=== PATIENT | female | born 1990 | race Caucasian/White ===

== ENCOUNTER 2017-04-30 09:03 | Emergency (ER) | payer BC ==
[~2017-04-30] VITALS: Ht 165.1 cm; Wt 75.7 kg
[~2017-04-30 09:03] MED LIST: AZITHROMYCIN250 MG PO; CLARITIN,ALAVAR10 MG PO; LEVAQUIN750 MG PO; MOTRIN400 MG PO; PHENERGAN-CODE120 ML PO; PROMETHAZI6.25 MG/5 PO; PROMETHAZINE12.5 M1 PO; TYLENOL EXTRA500 MG PO; VENTOLIN HFA18 GM IH; ZITHROMAX250 MG PO
[2017-04-30 09:38] LABS: HEMATOCRIT 40.3 % (36.0-46.0); MCH 28.7 PG (29.0-34.0); MCV 84.3 FL (83-99); MEAN PLAT.VOLUME 10.1 uM^3 (9.5-12.4); PLATELET COUNT 305 K/uL (156-360); RBC DIS.WIDTH-CV 11.3 % (11.8-14.6); RBC DIS.WIDTH-SD 34.8 % (39-53); RED BLOOD COUNT 4.78 M/uL (3.80-5.20); WHITE BLOOD COUNT 8.4 K/uL (4.1-10.2)
[2017-04-30 09:51] LABS: CHLORIDE 106 mEq/L (99-109); POTASSIUM 3.8 mEq/L (3.7-5.4); SODIUM 140 mEq/L (136-147)
[2017-04-30 09:54] LABS: GLUCOSE 99 mg/dL (70-99)
[2017-04-30 09:55] LABS: ANION GAP 7 MEQ/L (2-14)
[2017-04-30 09:56] LABS: TOTAL BILIRUBIN 0.6 mg/dL (0.0-1.0)
[2017-04-30 09:57] LABS: ALKALINE PHOSPHATASE 68 IU/L (3-129); GFR ESTIMATE (CALCULATED) > 59 mL/min/
[2017-04-30 09:58] LABS: UREA NITROGEN (BUN) 5 mg/dL (9-23)
[2017-04-30 10:06] LABS: QUANTITATIVE HCG < 4.0 MIU/ML
[2017-04-30 11:20] LABS: ADD MIUA? YES; BILIRUBIN NEGATIVE; BLOOD NEGATIVE; COLOR YELLOW ((YELLOW)); GLUCOSE (STRIP) NEGATIVE; KETONES NEGATIVE; LEUKOCYTES NEGATIVE; NITRITE NEGATIVE; PROTEIN (STRIP) NEGATIVE; UROBILINOGEN 0.2 MG/DL (0.2-1.0)
[2017-04-30 11:24] LABS: BACTERIA RARE /HPF; EPITHELIAL CELLS RARE /HPF; MUCUS TRACE /LPF; UCUL ADDED? NO; WHITE BLOOD CELLS 0-5 /HPF (0-5)
[2017-04-30] MEDS ORDERED: PRILOSEC20 MG PO (12:23)
[2017-04-30] MEDS ORDERED: TYLENOL WITH C1 EACH PO (12:23)
[2017-04-30] MEDS ORDERED: ZOFRAN4 MG PO (12:23)
[2017-04-30 12:56] VITALS: BP 107/62
== END 2017-04-30 13:07 | disposition home or self-care (01) ==
LOC: EME 09:03
DX: R10.12 Left upper quadrant pain (principal)
CPT/HCPCS: 74176; 80053; 81003; 84702; 85027; 99281; 99284

== ENCOUNTER 2017-05-20 18:51 | Emergency (ER) | payer BC ==
[~2017-05-20] VITALS: Ht 165.1 cm; Wt 77.1 kg
[~2017-05-20 18:51] MED LIST changes: +PRILOSEC20 MG PO; +TYLENOL WITH C1 EACH PO; +ZOFRAN4 MG PO
[2017-05-20 19:40] LABS: HEMATOCRIT 40.6 % (36.0-46.0); MCH 29.6 PG (29.0-34.0); MCHC 34.7 G/DL (30.0-36.0); MCV 85.3 FL (83-99); MEAN PLAT.VOLUME 9.8 uM^3 (9.5-12.4); PLATELET COUNT 337 K/uL (156-360); RBC DIS.WIDTH-CV 11.3 % (11.8-14.6); RBC DIS.WIDTH-SD 35.1 % (39-53); RED BLOOD COUNT 4.76 M/uL (3.80-5.20); WHITE BLOOD COUNT 9.6 K/uL (4.1-10.2)
[2017-05-20 19:49] LABS: CHLORIDE 105 mEq/L (99-109); POTASSIUM 3.3 mEq/L (3.7-5.4); SODIUM 141 mEq/L (136-147)
[2017-05-20 19:51] LABS: GLUCOSE 90 mg/dL (70-99)
[2017-05-20 19:52] LABS: ANION GAP 14 MEQ/L (2-14)
[2017-05-20 19:53] LABS: TOTAL BILIRUBIN 0.4 mg/dL (0.0-1.0)
[2017-05-20 19:55] LABS: ALKALINE PHOSPHATASE 64 IU/L (3-129); GFR ESTIMATE (CALCULATED) > 59 mL/min/
[2017-05-20 19:56] LABS: UREA NITROGEN (BUN) 9 mg/dL (9-23)
[2017-05-20 20:03] LABS: QUANTITATIVE HCG < 4.0 MIU/ML
[2017-05-20 20:27] LABS: ADD MIUA? YES; BILIRUBIN NEGATIVE; BLOOD MODERATE; COLOR STRAW ((YELLOW)); GLUCOSE (STRIP) NEGATIVE; KETONES NEGATIVE; LEUKOCYTES NEGATIVE; NITRITE NEGATIVE; PROTEIN (STRIP) NEGATIVE; SPECIFIC GRAVITY 1.005 (1.000-1.030); UROBILINOGEN 0.2 MG/DL (0.2-1.0)
[2017-05-20 20:52] LABS: BACTERIA RARE /HPF; EPITHELIAL CELLS NONE SEEN /HPF; MUCUS NONE SEEN /LPF; RED BLOOD CELLS 0-5 /HPF (0-5); UCUL ADDED? NO; WHITE BLOOD CELLS 0-5 /HPF (0-5)
[2017-05-20] MEDS ORDERED: PERCOCET 5/31 TABLET PO (21:41)
[2017-05-20] MEDS ORDERED: ZOFRAN4 MG PO (21:41)
[2017-05-20 22:09] VITALS: BP 135/80
== END 2017-05-20 22:10 | disposition home or self-care (01) ==
LOC: EME 18:51
DX: R10.31 Right lower quadrant pain (principal); R31.9 Hematuria, unspecified; K21.9 Gastro-esophageal reflux disease without esophagitis; E03.9 Hypothyroidism, unspecified
CPT/HCPCS: 74177; 80053; 81003; 84702; 85027; 99281; 99284; J1885; J2405; J7030